=== PATIENT | male | born 1970 | race Caucasian/White ===

== ENCOUNTER 2020-12-13 13:00 | Inpatient (IN) | payer OTHER, SELFPAY ==
[2020-12-13] VITALS (15 sets, daily range): BP systolic 116–154; BP diastolic 71–94; PULSE 113–134; RESP 16–32; TEMP 36.6–39; O2SAT 90–98; BMI 17.9; BMI 18.9
--- NOTE | 2020-12-13 13:18 | XR_ITS ---
PROCEDURE: XR CHEST PORTABLE CLINICAL HISTORY: soa cough COMPARISON: No exams were available for comparison FINDINGS: The cardiomediastinal silhouette and pulmonary vascularity are within normal limits. There is dense consolidation in the right lower lobe consistent with pneumonia. The consolidation is slightly more extensive laterally. No obvious effusion. The left lung is clear Mild midthoracic curvature convex right IMPRESSION: Dense consolidation right lower lobe consistent with pneumonia. Suggest following till clear Dictated by: Claudio Ramachandran MD 12/13/2020 13:58 Claudio Ramachandran MD in [place] 12/13/2020 13:58
--- NOTE | 2020-12-13 13:39 | HMH.EDGENADL ---
ED Disposition Clinical Impression: Community acquired pneumonia, Sepsis, Acute renal failure Disposition: Admitted as Observation Condition on Discharge: Good Referrals: Sujatha Andrade [Primary Care Provider] - - Critical Care Critical Care Time: No Attestation: On 12/13/20, the high probability of a clinically significant, sudden or life threatening deterioration of the following system(s) required my full and direct attention, intervention and personal management. The time I documented below is in addition to time spent performing reported procedures but includes the following listed in this critical care notation. Medical Decision Making - Medical Records Medical records reviewed: Yes: I reviewed the patient's medical records. - Manuel Inquiry Pt receiving controlled substance: No Vital Signs: 12/13/20 13:00 12/13/20 13:13 12/13/20 13:30 Temperature 98.3 F Temperature Source Oral Pulse Rate 134 H 122 H Pulse Rate [Right] 127 H Respiratory Rate 18 29 H 32 H Blood Pressure 154/94 H 129/84 Blood Pressure [Right Arm] 141/71 H Blood Pressure Mean 131 99 Blood Pressure Mean [Right Arm] 94 02 Sat by Pulse Oximetry 97 95 97 - Lab Data Lab Results 12/13/20 13:34: WBC 5.0, RBC 5.16, Hgb 15.5, Hct 45.8, MCV 88.6, MCH 30.1, MCHC 34.0, RDW 14.0, Plt Count 219, MPV 8.8, Neut % (Auto) 89.9 H, Lymph % (Auto) 7.0 L, [place] % (Auto) 2.4, Eos % (Auto) 0.1, Baso % (Auto) 0.6, Neut # (Auto) 4.5, Lymph # (Auto) 0.4 L, [place] # (Auto) 0.1, Eos # (Auto) 0.0, Baso # (Auto) 0.0, Total Counted 100, Neutrophils % (Manual) 87 H, Band Neutrophils % 1.0, Lymphocytes % (Manual) 10, Monocytes % (Manual) 2, Platelet Estimate Normal, RBC Morphology Normal 12/13/20 13:34: Sodium 131 L, Potassium 3.6, Chloride 93 L, Carbon Dioxide 23, Anion Gap 18.6 H, BUN 57 H, Creatinine 2.10 H, Estimated Creat Clear 34, Estimated GFR 34 L, Est GFR ( Amer) 41 L, Glucose 131 H, Calcium 9.5, Magnesium 2.0 12/13/20 14:06: Specimen Source Right radial, O2 % Ra, ABG pH 7.59 H*, ABG pCO2 22.1 L, ABG pO2 70.0 L, ABG HCO3 20.7 L, ABG Total CO2 21.4 L, ABG O2 Saturation 96, ABG Base Excess -1.0, Claudio Test Acceptable Result diagrams: 12/13/20 13:34 12/13/20 13:34 Orders (Tests/Meds): ED MEDICATIONS Generic Name Dose Route Start Last Admin Trade Name Freq PRN Reason Stop Dose Admin Sodium Chloride 1,000 mls @ 999 mls/hr 12/13/20 13:30 12/13/20 14:13 Sod Chlor 0.9% 1000ml Bag IV 12/13/20 14:30 999 mls/hr .Q1H1M OH Administration Ceftriaxone Sodium 1 gm/ 50 mls @ 100 mls/hr 12/13/20 13:30 12/13/20 14:15 Sodium Chloride IV 12/27/20 13:29 100 mls/hr Q24H OH Administration Protocol Azithromycin 500 mg/ Sodium 250 mls @ 250 mls/hr 12/13/20 13:30 12/13/20 14:15 Chloride IV 12/27/20 13:29 250 mls/hr Q24H OH Administration Protocol Sodium Chloride 1,000 mls @ 999 mls/hr 12/13/20 14:15 Sod Chlor 0.9% 1000ml Bag IV 12/13/20 15:15 .Q1H1M OH ORDERS Category Date Time Status Basic Metabolic Panel AMLAB Lab 12/14/20 06:00 Ordered Complete Blood Count Auto Diff AMLAB Lab 12/14/20 06:00 Ordered Covid-19 Nasal PCR ([facility]) Routine Lab 12/13/20 13:48 Received Lactic Acid Stat Lab 12/13/20 14:25 Ordered Lipid Panel AMLAB Lab 12/14/20 06:00 Ordered Magnesium AMLAB Lab 12/14/20 06:00 Ordered Phosphorous AMLAB Lab 12/14/20 06:00 Ordered Blood Culture Stat Micro 12/13/20 13:18 Received Venous Blood Gas Stat RT 12/13/20 13:18 Ordered Medical Decision Narrative: Male presents with symptoms consistent with pneumonia and sepsis. He is an mild distress initially given IV fluids IV ceftriaxone and IV azithromycin and he was feeling better. Chest x-ray confirms right lower lobe consolidation. He also has acute renal failure. Plan to obtain blood cultures and admit to Dr. Jimenez for continued management no indication for pressors at this time and blood pressure stable. General Adult HP
--- NOTE | 2020-12-13 13:40 | PC.NURSE ---
Called RT for BG
[2020-12-13 13:46] LABS: Basophils % 0.6 % (0.1-2.0); Eosinophils % 0.1 % (0.1-12.0); Hematocrit 45.8 % (42.0-52.0); Hemoglobin 15.5 g/dL (14.1-18.0); Lymphocytes # 0.4 K/mm3 (0.7-4.5); Mean Corpuscular Hemoglobin 30.1 pg (27.0-31.2); Mean Corpuscular Volume 88.6 fl (80-94); Mean Platelet Volume 8.8 fl (7.4-10.4); Monocytes # 0.1 K/mm3 (0.1-1.0); Monocytes % 2.4 % (1.7-9.3); Neutrophils # 4.5 K/mm3 (1.8-7.8); Neutrophils % 89.9 % (37.0-80.0); Platelet Count 219 K/mm3 (142-424); Red Blood Count 5.16 M/mm3 (4.60-6.20)
[2020-12-13 13:48] LABS: MANUAL DIFFERENTIAL MANUAL DIFFERENTIAL (MANUAL DIFF)
[2020-12-13 13:52] LABS: Chloride 93 mmol/L (98-107); Sodium 131 mmol/L (136-145)
[2020-12-13 13:53] LABS: Potassium 3.6 mmoL/L (3.5-5.1)
[2020-12-13 13:55] LABS: Blood Urea Nitrogen 57 mg/dl (9-20)
[2020-12-13 13:56] LABS: Anion Gap 18.6 mEq/L (5-15); Calcium 9.5 mg/dl (8.4-10.2); Carbon Dioxide 23 mmol/L (22.0-30.0); Creatinine Clearance Estimated 34 mL/min (50-200); Estimated Glomerular Filt Rate 34 ml/min (>60); GFR (African American) 41 ML/MIN (>60); Glucose 131 mg/dl (74-100)
[2020-12-13 13:58] LABS: Lymphocytes % 10 % (10-50); Monocytes % 2 % (2-9); Neutrophils % 87 % (42-76); Platelet Estimate Normal; RBC Morphology Normal; Total Cells Counted 100
[2020-12-13 14:12] LABS: ABG HCO3 20.7 mmhg (22.0-26.0); ABG Oxygen Saturation 96 % (90-100); ABG PCO2 22.1 mmhg (35.0-45.0); ABG TCO2 21.4 mmhg (23-27); Allen's Test Acceptable; Oxygen RA %; Source Right Radial
[2020-12-13 14:13] LABS: ABG PH 7.59 mmol/L (7.35-7.45)
--- NOTE | 2020-12-13 14:14 | PC.NURSE ---
AWARE OF ABG RESULTS
[2020-12-13 14:41] LABS: Lactic Acid 2.3 mmol/L (0.7-2.1)
--- NOTE | 2020-12-13 14:59 | PC.NURSE ---
advised pt could have a tray. Tray ordered.
--- NOTE | 2020-12-13 14:59 | PC.NURSE ---
Rocephin finished at this time. Azithromycin started.
--- NOTE | 2020-12-13 15:04 | PC.NURSE ---
Pt eating at this time.
[2020-12-13 16:51] LABS: Procalcitonin 10.2 ng/mL (0.0-2.0)
--- NOTE | 2020-12-13 17:04 | PC.NURSE ---
Azithromycin finished. Patient is resting comfortably at this time.
--- NOTE | 2020-12-13 17:42 | PC.NURSE ---
REPORT CALLED TO BONNIE VASQUEZ
[2020-12-13 17:45] LABS: Reflex Lactic Add Lactic Reflex
--- NOTE | 2020-12-13 17:57 | PC.NURSE ---
pt going to the floor at this time.
[2020-12-13 18:17] LABS: Lactic Acid Follow Up (RFLX 1) 1.9 mmol/L (0.7-2.1)
[2020-12-14] VITALS (8 sets, daily range): BP systolic 103–153; BP diastolic 65–84; PULSE 80–113; RESP 17–19; TEMP 36.7–39.2; O2SAT 91–97; BMI 18.8
--- NOTE | 2020-12-14 00:52 | PC.NURSE ---
PT RA SAT 86-88%. PT HAVING TROUBLE BREATHING AND HAVING PRODUCTIVE COUGH. PLACED 2LNC ON PT-91% AT THIS TIME. PT TEMP 102.6. ACTIVE COOLING MEASURES IN PLACE. TYLENOL ADMINISTERED. WILL REASSESS SOON. WILL CONTINUE TO MONITOR.
--- NOTE | 2020-12-14 03:03 | PC.NURSE ---
ON REASSESSMENT, PT TEMP DOWN TO 100.3. PT STATES HIS COUGH IS NOW BETTER, BUT HE IS STILL HAVING PAIN IN HIS CHEST WHEN BREATHING DEEP. ADMINISTERED PRN MORPHINE ORDERED BY OUTPLACEMENT CONSULTANT MD DOMINGUEZ. PT HAS BEEN VERY WEAK T/O SHIFT. PT SHOWN HOW TO USE IS. PT HAS PRODUCTIVE COUGH, YELLOW COLORED SPUTUM PRODUCED. 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 VSS WILL CONTINUE TO MONITOR.
--- NOTE | 2020-12-14 03:21 | PC.NURSE ---
PT 92% ON RA AT THIS TIME
[2020-12-14 07:21] LABS: Basophils % 0.2 % (0.1-2.0); Eosinophils % 0.1 % (0.1-12.0); Hematocrit 36.1 % (42.0-52.0); Lymphocytes # 0.5 K/mm3 (0.7-4.5); Lymphocytes % 6.4 % (10-50); Mean Corpuscular HGB Conc 32.9 g/dL (31.8-35.4); Mean Corpuscular Hemoglobin 29.9 pg (27.0-31.2); Mean Corpuscular Volume 90.8 fl (80-94); Mean Platelet Volume 9.1 fl (7.4-10.4); Monocytes # 0.2 K/mm3 (0.1-1.0); Monocytes % 2.4 % (1.7-9.3); Neutrophils # 7.4 K/mm3 (1.8-7.8); Neutrophils % 90.9 % (37.0-80.0); Platelet Count 165 K/mm3 (142-424); Red Blood Count 3.98 M/mm3 (4.60-6.20); White Blood Count 8.1 K/mm3 (4.8-10.8)
[2020-12-14 07:26] LABS: MANUAL DIFFERENTIAL MANUAL DIFFERENTIAL (MANUAL DIFF)
--- NOTE | 2020-12-14 07:27 | HMH.PHAVTE ---
[facility] [place] [facility] VTE Monitoring - Patient Demographics Admission date: 12/13/20 Report Date: 12/14/20 Time: 07:27 Allergies/Adverse Reactions: Patient Allergies No Known Allergies Allergy (Verified 12/13/20 13:51) Height: 1.78 m Weight: 59.874 kg Patient Problems: Current Active Problems Community acquired pneumonia (Acute) Sepsis (Acute) Acute renal failure (Acute) - VTE Risk Labs: VTE Related Lab Results Hgb 15.5 g/dL (14.1-18.0) 12/13/20 13:34 Hct 36.1 % (42.0-52.0) L 12/14/20 05:55 Plt Count 165 K/mm3 (142-424) 12/14/20 05:55 BUN 57 mg/dl (9-20) H 12/13/20 13:34 Creatinine 2.10 mg/dl (0.66-1.25) H 12/13/20 13:34 Estimated Creat Clear 34 mL/min (50-200) 12/13/20 13:34 Was VTE Risk Assessment Performed: No VTE Score: 2 - Prophylaxis VTE Prophylaxis Ordered?: Yes Types of VTE Prophylaxis: TEDS Knee High, Pharmacological Location of Applied Device: Bilateral Lower Extremeties Pharmacologic Type: Enoxaparin
[2020-12-14 07:30] LABS: Chloride 101 mmol/L (98-107)
[2020-12-14 07:31] LABS: Potassium 3.6 mmoL/L (3.5-5.1); Sodium 131 mmol/L (136-145)
[2020-12-14 07:34] LABS: Anion Gap 9.6 mEq/L (5-15); Blood Urea Nitrogen 30 mg/dl (9-20); Carbon Dioxide 24 mmol/L (22.0-30.0); Creatinine Clearance Estimated 95 mL/min (50-200); Estimated Glomerular Filt Rate 103 ml/min (>60); GFR (African American) 124 ML/MIN (>60); Glucose 103 mg/dl (74-100)
--- NOTE | 2020-12-14 07:36 | HMH.HP ---
*Admission Date: 12/13/20 *Chief complaint: Shortness of breath *History of present illness: 50-year-old male with history of cigarette use presented to the emergency department with 2 days of fevers, chills, right-sided rib pain and cough with purulent yellow sputum. Patient claims to have a history of pneumonia. Patient was in respiratory distress primarily from the pain he was experiencing in his ribs. Patient underwent evaluation was found to have large right lower lobe pneumonia. Patient was placed on oxygen and started on IV Rocephin and azithromycin. This morning patient reports improvement although admits that his most significant symptom is pain with deep breathing, movement or coughing. He continues to cough up thick yellow sputum. Patient had acute kidney injury with creatinine of 2.3 and a pro calcitonin of 10. [facility] History I have reviewed the patient's past medical history: Yes *Have you ever received a pneumonia vaccine?: No *Have you received a flu vaccine this season?: No Other Medical History: Reports: Other (Pneumonia) - *Social History Smoking Status: Former smoker Tobacco Type: cigarettes # Packs/Day (cigarettes): 1 Alcohol Intake: never *Occupational Status:: employed Housing: house Household Members: significant other *Travel in the last 8 weeks: None Family Hx:: Cancer, Diabetes, Heart Attack, Hyperlipidemia, Hypertension, Kidney Disease Review of Systems - Constitutional Reports anorexia - Eyes Denies blind spots - ENT Denies abnormal hearing - *Cardiovascular Reports chest pain - *Respiratory Reports change in phlegm color, Reports chest congestion, Reports cough, Reports shortness of breath, Reports shortness of breath with activity, Reports excessive phlegm production, Reports pain on inspiration, Reports pain with cough - *Gastrointestinal Denies abdominal pain - *Genitourinary Denies difficulty urinating - *Musculoskeletal Denies abnormal walking - Integumentary/Breasts Denies hair loss - *Neurologic Denies headache(s), Denies numbness, Denies weakness Meds Home Medications Medication Instructions Recorded Confirmed Type No Known Home Medications 12/13/20 12/13/20 History Allergies Allergy/AdvReac Type Severity Reaction Status Date / Time No Known Allergies Allergy Verified 12/13/20 13:51 Exam Vital signs and Labs for Last 24 Hours: Temp Pulse Resp BP Pulse Ox 98.7 F 89 17 113/65 91 L 12/14/20 04:00 12/14/20 04:00 12/14/20 04:00 12/14/20 04:00 12/14/20 04:00 Laboratory Results - last 24 hr 12/13/20 13:34: WBC 5.0, RBC 5.16, Hgb 15.5, Hct 45.8, MCV 88.6, MCH 30.1, MCHC 34.0, RDW 14.0, Plt Count 219, MPV 8.8, Neut % (Auto) 89.9 H, Lymph % (Auto) 7.0 L, [place] % (Auto) 2.4, Eos % (Auto) 0.1, Baso % (Auto) 0.6, Neut # (Auto) 4.5, Lymph # (Auto) 0.4 L, [place] # (Auto) 0.1, Eos # (Auto) 0.0, Baso # (Auto) 0.0, Total Counted 100, Neutrophils % (Manual) 87 H, Band Neutrophils % 1.0, Lymphocytes % (Manual) 10, Monocytes % (Manual) 2, Platelet Estimate Normal, RBC Morphology Normal 12/13/20 13:34: Sodium 131 L, Potassium 3.6, Chloride 93 L, Carbon Dioxide 23, Anion Gap 18.6 H, BUN 57 H, Creatinine 2.10 H, Estimated Creat Clear 34, Estimated GFR 34 L, Est GFR ( Amer) 41 L, Glucose 131 H, Calcium 9.5, Magnesium 2.0 12/13/20 13:34: Lactate 2.3 H 12/13/20 13:34: Procalcitonin 10.2 H 12/13/20 14:06: Specimen Source Right radial, O2 % Ra, ABG pH 7.59 H*, ABG pCO2 22.1 L, ABG pO2 70.0 L, ABG HCO3 20.7 L, ABG Total CO2 21.4 L, ABG O2 Saturation 96, ABG Base Excess -1.0, Claudio Test Acceptable 12/13/20 18:00: Lactate 1.9 12/14/20 05:55: WBC 8.1 D, RBC 3.98 L, Hct 36.1 L, MCV 90.8, MCH 29.9, MCHC 32.9, RDW 14.0, Plt Count 165, MPV 9.1, Neut % (Auto) 90.9 H, Lymph % (Auto) 6.4 L, [place] % (Auto) 2.4, Eos % (Auto) 0.1, Baso % (Auto) 0.2, Neut # (Auto) 7.4, Lymph # (Auto) 0.5 L, [place] # (Auto) 0.2, Eos # (Auto) 0.0, Baso # (Auto) 0.0 I & O for Last 24 hours: Inta
[2020-12-14 08:28] LABS: Lymphocytes % 5 % (10-50); Monocytes % 3 % (2-9); Neutrophils % 86 % (42-76); Platelet Estimate Normal; RBC Morphology Normal; Total Cells Counted 100
[2020-12-14 09:53] LABS: Calcium 7.6 mg/dl (8.4-10.2)
--- NOTE | 2020-12-14 13:34 | PC.NURSE ---
pt had sputum induction with hypertonis saline. Pt produced large amounts of dark yellow sputum and two samples where spent to lab at this time.
--- NOTE | 2020-12-14 17:44 | PC.NURSE ---
Addendum entered by Brandy Harding RN 12/14/20 17:50: Pt has been reminded to use IS hourly while awake this shift. IS @ best= 1750 cc's. Pt has been coughing up dark yellow sputum this shift, sputum speci was sent to lab per RT. Original Note: Pt has slept majority of this shift. Lung sounds CTA. Pt has remained on RA this shift w/ o2 sats > 95%. Pt was very weak and lethargic, requiriing this RN to lift his arms up for him and lift his shirt sleeves up for him at the beginning of shift, but now is alert and able to move more freely on his own. Pt's urine has been clear and dark ely in color this shift. Active bowel sounds in all 4 quads, no BM noted. Pt appetite has improved this shift. No other acute changes or complaints at this time.
--- NOTE | 2020-12-14 23:36 | PC.NURSE ---
PT HAS INTERMITTENT PRODUCTIVE COUGH. SPUTUM DARK YELLOW IN COLOR. TORADOL GIVEN FOR PAIN. REPORT GIVEN TO KUMAR VASQUEZ.
[2020-12-15] VITALS: BP 140/88; PULSE 125; RESP 18; TEMP 37.6; O2SAT 90
[2020-12-15 00:21] VITALS: PULSE 110; PULSE 114
[2020-12-15 04:00] VITALS: BP 116/66; PULSE 112; RESP 18; TEMP 38.1; O2SAT 90
[2020-12-15 05:00] VITALS: BMI 18.5
--- NOTE | 2020-12-15 05:38 | PC.NURSE ---
REassessed patient temp at 0532, registered 100 degrees F. Gave Tylenol 650 mg for fever. Patient coughing often throughout shift, new Breathing Tx of Duo neb ordered by gave patient relief. Patient refused the 0400 Due neb. Will continue to monitor for any acute changes.
[2020-12-15 07:45] LABS: Procalcitonin 5.58 ng/mL (0.0-2.0)
[2020-12-15 07:59] VITALS: BP 117/75; PULSE 86; RESP 18; TEMP 36.6; O2SAT 94
[2020-12-15 08:00] VITALS: O2SAT 94
--- NOTE | 2020-12-15 08:04 | HMH.DCSUM ---
General - General Admission date:: 12/13/20 Discharge date: 12/15/20 HPI HPI: 50-year-old male with history of cigarette use presented to the emergency department with 2 days of fevers, chills, right-sided rib pain and cough with purulent yellow sputum. Patient claims to have a history of pneumonia. Patient was in respiratory distress primarily from the pain he was experiencing in his ribs. Patient underwent evaluation was found to have large right lower lobe pneumonia. Patient was placed on oxygen and started on IV Rocephin and azithromycin. This morning patient reports improvement although admits that his most significant symptom is pain with deep breathing, movement or coughing. He continues to cough up thick yellow sputum. Patient had acute kidney injury with creatinine of 2.3 and a pro calcitonin of 10. Hospital Course Hospital Course: Patient was admitted on IV Rocephin and azithromycin to treat community-acquired pneumonia. Patient was stabilized in the ER and admitted to a [facility] bed. Patient's course improved rather rapidly from there. He continued to complain of right-sided pleuritic chest pain. Patient was weaned off of supplemental oxygen within 24 hours. Chest pain improved. He remained afebrile during hospitalization. Blood cultures turned positive with aerobic culture suggestive of strep pneumonia. Patient's white count remained depressed. Procalcitonin was 10 and decreased to 5 after 36 hours of antibiotics. Patient was satting well on room air. Ambulating without difficulty. Appetite and improved. Patient was discharged home. He will complete 1 week of IV Rocephin along with oral azithromycin. He will complete an additional week of oral cefdinir after finishing IV antibiotics. Patient will follow up with his primary care provider later this week Objective Vital signs: Temp Pulse Resp BP Pulse Ox 100.6 F H 112 H 18 116/66 90 L 12/15/20 04:00 12/15/20 04:00 12/15/20 04:00 12/15/20 04:00 12/15/20 04:00 no acute distress - *Routine HEENT Exam Head: Present: normocephalic Eye: Present: EOMI, PERRL ENT: Present: mucous membranes moist - *Routine Neck Exam Present: supple - *Routine Respiratory Exam Present: other Comments: Diminished breath sounds with rales in the right base best heard laterally. - *Routine Cardiovascular Exam Present: RRR - *Routine Abdominal Exam Present: soft, normoactive bowel sounds. Absent: tenderness - *Routine Extremities Exam Absent: cyanosis, clubbing, edema - *Routine Skin Exam Present: warm. Absent: rash - Detailed Eye Exam Eyelids: Bilateral normal inspection Results Labs on day of discharge: Labs from last 24 hours 12/15/20 12/14/20 12/14/20 06:55 05:55 05:55 Total Counted 100 Neutrophils % (Manual) 86 H Band Neutrophils % 5.0 Lymphocytes % (Manual) 5 L Atypical Lymphs % 1.0 Monocytes % (Manual) 3 Platelet Estimate Normal RBC Morphology Normal Calcium 7.6 L D Procalcitonin 5.58 H Preliminary micro results at discharge 12/13/20 13:18 Blood Culture - Preliminary Blood 12/13/20 13:18 Blood Culture - Preliminary Blood DS: Diagnosis - Discharge Diagnosis (1) Community acquired pneumonia Status: Acute (2) Cigarette smoker Status: Acute (3) Acute renal failure Status: Acute (4) Sepsis due to Streptococcus pneumoniae Status: Acute Discharge Plan - Patient Discharge Instructions ACTIVITY: Continue current activity DIET: continue same diet Patient Instructions: Pneumonia-Adult, Sepsis, Acute Kidney Injury - Follow up Plan Disposition: Home, Self-Longterm Medications: Home Medications Medication Instructions Recorded Confirmed Type No Known Home Medications 12/13/20 12/13/20 History Azithromycin 250 mg PO DAILY #2 tab 12/15/20 Rx Cefdinir [Omnicef 300mg Capsule] 300 mg PO BID #14 cap 12/15/20 Rx Ibuprofen [Ibuprofen
== END 2020-12-15 12:46 | disposition home or self-care (01) | DRG 871 ==
LOC: ER 14:29 → 2ND 12-14 07:43
PROVIDERS: Admitting Provider Family Medicine; Emergency Provider Emergency Medicine; PCP Nurse Practitioner Family; Visit Provider Family Medicine
DX: A40.3 Sepsis due to Streptococcus pneumoniae (principal); J18.9 Pneumonia, unspecified organism; N17.9 Acute kidney failure, unspecified; F17.210 Nicotine dependence, cigarettes, uncomplicated
CPT/HCPCS: 36415; 71045; 80048; 82803; 83605; 83735; 84145; 85007; 85025; 87040; 87070; 87077; 87186; 87205; 94640; 96365; 96367; 96375; 99284; J0456; U0003

== ENCOUNTER 2020-12-16 12:47 | Outpatient (CLI) | payer OTHER, SELFPAY ==
[2020-12-16 13:38] VITALS: BP 137/74; PULSE 95; RESP 20; O2SAT 93
== END 2020-12-16 13:55 | disposition home or self-care (01) ==
LOC: INF 12:49
PROVIDERS: PCP Nurse Practitioner Family; Visit Provider Family Medicine
DX: J18.9 Pneumonia, unspecified organism (principal); A40.3 Sepsis due to Streptococcus pneumoniae; F17.210 Nicotine dependence, cigarettes, uncomplicated
CPT/HCPCS: 96365

== ENCOUNTER 2020-12-17 12:38 | Outpatient (CLI) | payer OTHER, SELFPAY ==
[2020-12-17 13:04] VITALS: BP 137/82; PULSE 101; RESP 22; TEMP 38; O2SAT 92
[2020-12-17 13:34] VITALS: BP 135/84; PULSE 99; RESP 20; O2SAT 93
[2020-12-17 13:55] VITALS: BP 139/72; PULSE 82; RESP 20; TEMP 37.5; O2SAT 93
== END 2020-12-17 13:55 | disposition home or self-care (01) ==
LOC: INF 12:38
PROVIDERS: PCP Nurse Practitioner Family; Visit Provider Family Medicine
DX: A04.3 Enterohemorrhagic Escherichia coli infection (principal); J18.9 Pneumonia, unspecified organism
CPT/HCPCS: 96365

== ENCOUNTER 2020-12-18 12:14 | Outpatient (CLI) | payer OTHER, SELFPAY ==
[2020-12-18 12:25] VITALS: BP 125/74; PULSE 81; RESP 18; TEMP 37; O2SAT 94
[2020-12-18 12:55] VITALS: BP 121/70; PULSE 80; RESP 18; O2SAT 94
[2020-12-18 13:00] VITALS: BP 122/76; PULSE 74; RESP 18; O2SAT 93
== END 2020-12-18 13:00 | disposition home or self-care (01) ==
LOC: INF 12:14
PROVIDERS: Visit Provider Family Medicine
DX: A40.3 Sepsis due to Streptococcus pneumoniae (principal)
CPT/HCPCS: 96365

== ENCOUNTER 2020-12-19 12:17 | Outpatient (CLI) | payer OTHER, SELFPAY ==
[2020-12-19 12:29] VITALS: BP 129/76; PULSE 91; RESP 18; TEMP 36.5; O2SAT 95
[2020-12-19 13:00] VITALS: BP 122/78; PULSE 90; RESP 18; O2SAT 95
[2020-12-19 13:20] VITALS: BP 128/73; PULSE 88; RESP 18; O2SAT 94
== END 2020-12-19 13:20 | disposition home or self-care (01) ==
LOC: INF 12:17
PROVIDERS: Visit Provider Family Medicine
DX: J18.9 Pneumonia, unspecified organism (principal); A40.3 Sepsis due to Streptococcus pneumoniae
CPT/HCPCS: 96365